=== PATIENT | female | born 1950 | race American Indian/Alaskan Native ===

== ENCOUNTER 2017-06-22 06:35 | Day surgery (SDC) | payer MEDICARE ==
[2017-06-22 07:06] VITALS: BMI 38.4
--- NOTE | 2017-06-22 09:31 | CP.SDSHP ---
Same Day Surgery H & P - History Proposed Procedure: Colonoscopy Pre-Op Diagnosis: History of polyps, high risk screening - Previous Medical/Surgical History Cardiac: Hypertension Pulmonary: Asthma Misc: Other Comments: Hyperlipidemia Previous Surgical History: Hysterectomy - Allergies Allergies: Allergies No Known Allergies Allergy (Verified 06/22/17 07:06) - Current Medications Current Medications: See reconciliation sheet - Physical Exam General Appearance: WD WN female in NAD Vital Signs: Vital Signs 06/22/17 07:10 Temperature 98.7 F Pulse Rate 80 Respiratory 17 Rate Blood Pressure 142/86 O2 Sat by Pulse 98 Oximetry Mental Status: Alert & Oriented x3 Neuro: WNL Heart: WNL Lungs: WNL GI: WNL - {Optional Preform as Required} Abdomen: WNL - Impression Impression: History of polyps Pt. Evaluated Today:Candidate for Anesthesia & Procedure: Yes - Date & Time Date: 06/22/17 Time: 09:30 Short Stay Discharge - Short Stay Discharge Admitting Diagnosis/Reason for Visit: SCREENING Disposition: HOME/ ROUTINE
[2017-06-22] MEDS ORDERED: Propofol 10 mg/ml Inj (20 ML) ONE ×3 (09:37→10:02)
[2017-06-22] MEDS ORDERED: Lidocaine Hydrochloride 5 ML INJ ONE (09:37)
[2017-06-22 10:45] VITALS: TEMP 97
[2017-06-22 11:03] VITALS: BP 150/74; PULSE 80; RESP 20; O2SAT 99
== END 2017-06-22 11:00 | disposition home or self-care (01) ==
LOC: C.ENDO 06:35
PROVIDERS: ATTEND Internal Medicine Gastroenterology
DX: Z12.11 Encounter for screening for malignant neoplasm of colon (principal); Z86.010 Personal history of colon polyps; K57.30 Diverticulosis of large intestine without perforation or abscess without bleeding; D12.3 Benign neoplasm of transverse colon; K63.5 Polyp of colon; I10 Essential (primary) hypertension; J45.909 Unspecified asthma, uncomplicated; E78.5 Hyperlipidemia, unspecified
CPT/HCPCS: 45380; 45385; 88305; J2704